=== PATIENT | female | born 1980 | race Two or more races ===

== ENCOUNTER 2020-03-01 13:41 | Inpatient (IN) | payer OTHER ==
[~2020-03-01] VITALS: Ht 154.9 cm; Wt 94.8 kg
[2020-03-09] MEDS ORDERED: PANTOPRAZOLE SO40 MG PO (10:19)
[2020-03-09] MEDS ORDERED: PEPCID AC20 MG PO (10:20)
[2020-03-09] MEDS ORDERED: LEVSIN/SL0.125 MG SL (10:21)
[2020-03-09] MEDS ORDERED: AMOX1TAB5 PO (10:22)
[2020-03-09] MEDS ORDERED: PROBIOTIC1 EAC4 PO (10:22)
== END 2020-03-09 10:51 | disposition home or self-care (01) | DRG 446 ==
LOC: ER 13:41 → SEC-K 03-02 10:59 → SURH 03-02 13:00 → MEDJ 03-06 17:52 → MEDI 03-06 17:52
PROVIDERS: ADMIT Internal Medicine; ATTEND Internal Medicine
PROC: BF37ZZZ Magnetic Resonance Imaging (MRI) of Pancreas (ICD-10-PCS; 2020-03-02)
PROC: 0FJB8ZZ Inspection of Hepatobiliary Duct, Via Natural or Artificial Opening Endoscopic (ICD-10-PCS; principal; 2020-03-07)
DX: K80.50 Calculus of bile duct without cholangitis or cholecystitis without obstruction (principal)